=== PATIENT | female | born 1990 | race Caucasian/White ===

== ENCOUNTER 2020-10-10 05:13 | Emergency (ER) | payer OTHER, SELFPAY ==
[2020-10-10 05:14] VITALS: BP 147/113; PULSE 125; RESP 18; TEMP 37.2; O2SAT 94; BMI 29.1
--- NOTE | 2020-10-10 05:21 | CT_ITS ---
STUDY: CT ABDOMEN AND PELVIS WITHOUT CONTRAST REASON FOR EXAM: Female, 30 years old. Pain RADIATION DOSAGE (If Supplied By Facility): CTDIvol = ( 34.45 ) mGy, DLP = ( 1833.45 ) mGycm TECHNIQUE: Transaxial images were obtained from the dome of the diaphragm to the symphysis pubis without oral contrast, and without intravenous contrast. Sagittal and coronal images were reconstructed. Individualized dose optimization techniques were used for this CT. COMPARISON: None. FINDINGS: The visualized lung bases are unremarkable. The visualized portions of the heart are within normal limits. Normal liver. There are surgical clips in the gallbladder fossa consistent with a prior cholecystectomy. Normal spleen. Normal pancreas. Normal bilateral adrenal glands. Normal right kidney. Normal left kidney. Normal visualized stomach. Normal small intestine. There is abundant stool in the colon. The appendix is visualized and appears normal. Normal abdominal aorta. Normal inferior vena cava. Normal retroperitoneum. Normal urinary bladder. There is atrophy of the uterus. Normal abdominal wall. There are diffuse degenerative changes of the visualized lumbar spine. There is a left lateral disc protrusion L4-L5. There is a broad disc osteophyte protrusion L5-S1 with moderate to severe left neural foramina narrowing moderate central stenosis. CT/Abdomen/Pelvis without Cont IMPRESSION: Constipation no appendicitis Status post cholecystectomy Degenerative change of the lower lumbar spine with a left lateral disc protrusion L4-L5 and L5-S1. Electronically Signed: Ellie Cruz MD at 6:19 EDT Tel , Service support ,
[2020-10-10 05:31] LABS: Absolute Lymphocyte Count 4.37 X10^3/uL (0.83-4.51); Absolute Neutrophil Count 9.7 X10^3/uL (2.0-7.7); Basophil# 0.07 X10^3/uL; Basophil% 0.4 % (0-1); Eosinophil# 0.57 X10^3/uL; Eosinophils% 3.6 % (0-5); Hematocrit 45.9 % (37-47); Hemoglobin 14.9 g/dL (12.0-15.0); Lymphocyte # 4.37 X10^3/ul (0.83-4.51); Lymphocyte % 27.7 % (19-41); Mean Corp Hgb Conc 32.5 g/dL (32-36); Mean Corpuscular Hgb 28.2 pg (27.0-32.0); Mean Corpuscular Volume 86.9 fL (81-99); Mean Platelet Vol. 9.8 fl (6.2-12.0); Monocyte# 1.01 X10^3/uL; Monocyte% 6.4 % (0-10); NRBC Flagged by Analyzer 0 % (0-5); Neutrophil # 9.67 X10^3/uL (2.7-7.7); Neutrophil % 61.4 % (47-70); Platelet Count 468 K/mm3 (150-450); RBC Distribution Width CV 13.6 % (11.6-14.6); RBC Distribution Width SD 42.9 fl (35.1-43.9); Red Blood Count 5.28 M/mm3 (4.2-5.4); White Blood Count 15.8 K/mm3 (4.4-11.0)
--- NOTE | 2020-10-10 05:36 | EX.ED.DYSGE1 ---
HPI History of Present Illness Chief Complaint: Dizziness Informant: patient Narrative Narrative: Patient presents with dizziness and lightheadedness. She states that she started having symptoms last night but when she woke up this morning they were worse. She states that she feels lightheaded. She initially had no pain but when she got to the emergency department she now has right lower quadrant abdominal pain. No dysuria or hematuria. She denies any nausea vomiting or diarrhea. She denies a headache. The patient is hyperventilating and states that she has having blurry vision. She does not give much history. [facility] Medical History Asthma Hypertension Home Medications sulfamethoxazole-trimethoprim 1 tab PO BID #14 tablet 10/10/20 [Rx Last Taken Unknown] Allergy/AdvReac Type Severity Reaction Status Date / Time No Known Allergies Allergy Verified 10/10/20 05:21 Social History Smoking Status: Current some day smoker tobacco type: cigarettes ROS ROS ED Constitutional Constitutional ED: Denies chills or fever(s) Eyes Eyes: Denies blurry vision, change in vision or diplopia ENT ENT ED: Denies ear pain, rhinorrhea or sore throat Cardiovascular Cardiovascular: Reports other Details: Dizziness and lightheadedness Respiratory/Chest Respiratory/Chest: Denies cough, dyspnea or sputum Gastrointestinal Gastrointestinal: Reports abdominal pain Genitourinary Genitourinary ED: Denies dysuria, hematuria or urinary frequency Musculoskeletal Musculoskeletal: Denies back pain or neck pain Integumentary Denies change in pigmentation or rash Neurologic Neurologic: Denies headache(s), numbness or weakness Psychiatric Psychiatric: Denies anxiety or depression Endocrine Endocrinology: Denies polydipsia or polyuria EXAM Physical Exam Const Vital Signs: 10/10/20 05:14 10/10/20 05:19 Temperature 98.9 F Temperature Source Oral Pulse Rate 125 H Respiratory Rate 18 Respiratory Effort Normal Non-Labored Respiratory Pattern Normal Blood Pressure 147/113 H Blood Pressure Mean 124 Pulse Ox 94 Oxygen Delivery Method Room Air Positive well nourished and well developed Constitutional Narrative: Patient is hyperventilating General Appearance ED: well developed HEENT Reports moist mucous membranes normocephalic and atraumatic; Negative for tenderness Eyes PERRL and EOMs intact bilaterally Neck supple and no JVD Chest Wall Chest: Negative for tenderness Resp normal respiratory effort and clear to auscultation bilaterally Effort and Inspection: Negative for respiratory distress Cardio regular rhythm and no murmurs Rate: regular rate and tachycardic Rhythm: regular rhythm GI soft to palpation and non-distended Palpation: soft and tender RLQ Back/Spine no CVA tenderness and no thoracic nor lumbar tenderness Cervical Spine: Negative for cervical spine tenderness Extremity normal to inspection and full ROM General Extremety ED: Negative for tenderness Neuro oriented x3, CN's II-XII intact bilaterally and no sensory deficits noted Sensorium / Orientation: awake and alert Motor Exam: strength 5/5 throughout Psych mental status grossly normal Skin no rashes or lesions noted MDM MDM MDM Narrative Medical decision making narrative: The patient was given Toradol for pain control. Laboratory studies show white blood cell count of 15.8, alkaline phosphatase 121. Urinalysis does have 500 leukocyte esterase and 25-50 white blood cells with 4+ bacteria. CAT scan of the abdomen and pelvis does not reveal anything acute. She was still continues to have pain so I gave her morphine for pain. I will start her on Bactrim for UTI. I do not see any acute causes for her lightheadedness or her abdominal pain. I will hydrate her with IV fluids and discharge her on Bactrim. She will follow-up with her PCP. Lab Data Labs: Laboratory Results - last 24 hr 10/10/20 10/10/20 10/10/20 05:25 05:25 05:35 WBC 15.8 H RBC 5.28 Hgb 14.9 Hct 45.9 MCV 86.9 MCH 28.2 MCHC 32.5 RDW Std Deviation 42.9 RDW Coeff of Jelena 13.6 Plt Count 468 H MPV 9.8 Immature Gran % (Auto) 0.500 Neut % (Auto) 61.4 Lymph % (Auto) 27.7 [place] % (Auto) 6.4 Eos % (Auto) 3.6 Baso % (Auto) 0.4 Absolute Neuts (auto) 9.7 H Absolute Lymphs (auto) 4.37 Nucleated RBC % 0 Sodium 137 Potassium 4.3 Chloride 106 Carbon Dioxide 21.0 Anion Gap 10 BUN 16 Creatinine 0.95 Estim Creat Clear Calc 84.20 Est GFR (MDRD) Af Amer 89 Est GFR (MDRD) Non-Af 73 BUN/Creatinine Ratio 16.8 Glucose 101 Calcium 9.2 Total Bilirubin 0.30 AST 19 ALT 36 Alkaline Phosphatase 121 H Total Protein 8.3 H Albumin 3.8 Globulin 4.5 H Albumin/Globulin Ratio 0.8 L Lipase 79 Urine Color Yellow Urine Clarity Sl. Cloudy Urine pH 5.0 Ur Specific [place] 1.030 Urine Protein 30 H Urine Glucose (UA) Normal Urine Ketones 5 H Urine Occult Blood 250 H Urine Nitrite Negative Urine Bilirubin Negative Urine Urobilinogen 1 H Ur Leukocyte Esterase 500 H Urine RBC 5-10 SEEN Urine WBC 25-50 SEEN Ur Squamous Epith Cells 10-25 SEEN Urine Bacteria 4+ Urine Mucus 0 SEEN Urine Test Negative Radiography Diagnostic Testing: Radiology Impression Abdomen/Pelvis CT 10/10/20 05:21 IMPRESSION: Constipation no appendicitis Status post cholecystectomy Degenerative change of the lower lumbar spine with a left lateral disc protrusion L4-L5 and L5-S1. Electronically Signed: Ellie Cruz MD at 6:19 EDT Tel , Service support , Discharge Plan Triage Chief Complaint: Dizziness ED Provider: Wily Crockett Dx/Rx/DC Orders Clinical Impression: Light-headed, Abdominal pain Instructions: ED Abdominal Pain Unkn Cause Fem Prescriptions: New sulfamethoxazole-trimethoprim [sulfamethoxazole-trimethoprim] 1 TABLET tablet 1 tab PO BID Qty: 14 RF: 0 Primary Care Provider: Care Physician,No Primary Referrals: Care Physician,No Primary [Primary Care Provider] - Disposition Disposition: Home, self care
[2020-10-10 05:44] LABS: Mucous, Urine 0 SEEN /hpf (<or=2+)
[2020-10-10] MEDS: Ketorolac 15 MG/ML Vial IV (05:44)
[2020-10-10] MEDS: 0.9% Normal Saline 1,000 ML 1000 ML IV (05:44)
[2020-10-10] MEDS: Ondansetron 4 MG/2 ML Vial IV (05:44)
[2020-10-10 05:52] LABS: Color, Urine Yellow (Yellow); Glucose, Dipstick Normal (Normal); Ketone-Dipstick 5 mg/dl (Negative); Leukocyte Esterase-Dipstick 500 /ul (Negative); Nitrite-Dipstick Negative (Negative); Occult Blood-Urine 250 /ul (Negative); Protein-Dipstick 30 mg/dl (Negative); Urine Bilirubin Dipstick Negative (Negative); Urine Clarity Sl. Cloudy (Clear); Urine Urobilinogen 1 mg/dl (Normal)
[2020-10-10 05:54] LABS: Internal QC Validated? YES +Cl - CLEAR BKGD; Pregnancy, Urine Negative Negative
[2020-10-10 06:00] LABS: Bacteria 4+ /hpf (None Seen); Red Blood Cells-Urine 5-10 SEEN /hpf (0-5); Squamous Epithelial Cells - UA 10-25 SEEN /hpf (5-10); White Blood Cells 25-50 SEEN /hpf (0-5)
[2020-10-10 06:02] LABS: ALB/GLOB Ratio 0.8 RATIO (0.9-2.4); AST(SGOT) 19 U/L (15-37); Alanine Aminotransfer ALT/SGPT 36 U/L (13-56); Albumin, Serum 3.8 g/dL (3.2-5.0); Alkaline Phosphatase 121 U/L (45-117); Anion Gap 10 (5-15); BUN 16 mg/dL (7-18); BUN/Creat Ratio 16.8 RATIO (10-20); Calcium,Total 9.2 mg/dL (8.5-10.1); Chloride 106 mmol/L (98-107); Creatinine, Serum 0.95 mg/dL (0.55-1.02); EST Glomerular Filtration Rate 73 mL/min (>60); Est Glom Filt Rate - Afr Amer 89 mL/min (>60); Globulin 4.5 g/dL (2.2-4.2); Glucose 101 mg/dL (74-106); Lipase 79 U/L (73-393); Potassium 4.3 mmol/L (3.5-5.1); Protein, Total 8.3 g/dL (6.4-8.2); Sodium Level 137 mmol/L (136-145)
[2020-10-10] MEDS: Smz/Tmp Ds Tablet 1 TABLET PO (06:27)
[2020-10-10] MEDS: Morphine 4 MG/ML Syringe IV (06:34)
[2020-10-10 06:49] VITALS: BP 147/88; PULSE 98; RESP 18; O2SAT 97
== END 2020-10-10 06:49 | disposition home or self-care (01) ==
PROVIDERS: Emergency Provider Emergency Medicine
DX: R42 Dizziness and giddiness (principal); R10.31 Right lower quadrant pain; F17.210 Nicotine dependence, cigarettes, uncomplicated
CPT/HCPCS: 74176; 80053; 81001; 81025; 83690; 85025; 96374; 96375; 99285; J7030; A4216; J2405

== ENCOUNTER → 2020-12-23 | Outpatient (CLI) | payer OTHER, SELFPAY ==
[2020-12-23 12:58] LABS: Hematocrit 42.9 % (37-47); Hemoglobin 13.8 g/dL (12.0-15.0); Mean Corp Hgb Conc 32.2 g/dL (32-36); Mean Corpuscular Hgb 27.9 pg (27.0-32.0); Mean Corpuscular Volume 86.7 fL (81-99); Mean Platelet Vol. 10.4 fl (6.2-12.0); Platelet Count 408 K/mm3 (150-450); RBC Distribution Width CV 13.8 % (11.6-14.6); Red Blood Count 4.95 M/mm3 (4.2-5.4); White Blood Count 10.8 K/mm3 (4.4-11.0)
[2020-12-23 13:24] LABS: Hemoglobin A1c 5.8 % (3.8-5.6)
[2020-12-23 13:34] LABS: Vitamin B12 309 pg/mL (211-911); Vitamin D,25 Hydroxy 14.1 ng/mL
[2020-12-23 13:45] LABS: ALB/GLOB Ratio 0.8 RATIO (0.9-2.4); AST(SGOT) 22 U/L (15-37); Alanine Aminotransfer ALT/SGPT 32 U/L (13-56); Albumin, Serum 3.4 g/dL (3.2-5.0); Alkaline Phosphatase 98 U/L (45-117); Anion Gap 7 (5-15); BUN 8 mg/dL (7-18); BUN/Creat Ratio 10.8 RATIO (10-20); Calcium,Total 8.6 mg/dL (8.5-10.1); Chloride 107 mmol/L (98-107); Creatinine, Serum 0.74 mg/dL (0.55-1.02); EST Glomerular Filtration Rate 97 mL/min (>60); Est Glom Filt Rate - Afr Amer 118 mL/min (>60); Ferritin 29 ng/mL (8-252); Globulin 4.2 g/dL (2.2-4.2); Glucose 63 mg/dL (74-106); Iron 75 ug/dL (50-170); Potassium 4.2 mmol/L (3.5-5.1); Protein, Total 7.6 g/dL (6.4-8.2); Sodium Level 138 mmol/L (136-145)
== END | disposition home or self-care (01) ==
LOC: LABSPEC 12:09
PROVIDERS: Referring Provider Nurse Practitioner Family; Visit Provider Nurse Practitioner Family
DX: E55.9 Vitamin D deficiency, unspecified (principal); I10 Essential (primary) hypertension; N92.0 Excessive and frequent menstruation with regular cycle; E66.01 Morbid (severe) obesity due to excess calories
CPT/HCPCS: 80053; 82306; 82607; 82728; 82746; 83036; 83540; 85027

== ENCOUNTER 2021-04-04 08:53 | Emergency (ER) | payer OTHER, SELFPAY ==
[2021-04-04 08:54] VITALS: BP 144/117; PULSE 134; RESP 28; TEMP 35.2; O2SAT 94; BMI 65.2
[2021-04-04 09:22] VITALS: BP 148/91; PULSE 126; RESP 26; TEMP 36.8; O2SAT 96
--- NOTE | 2021-04-04 09:54 | RAD_ITS ---
STUDY: X-RAY CHEST REASON FOR EXAM: Female, 30 years old. Cough TECHNIQUE: Single AP portable view of the chest. COMPARISON: None. FINDINGS: EKG electrodes are seen. The lungs are clear and expanded. There is no demonstrated pleural abnormality. Normal size heart. Normal mediastinum and fitz. Normal visualized pulmonary arteries. Normal visualized aortic arch and descending thoracic aorta. Normal visualized thoracic spine. Normal visualized ribs, clavicles, and shoulders. There is no demonstrated abnormality of the visualized soft tissue structures of the upper abdomen. RAD/Chest 1 View (Portable) IMPRESSION: Normal x-ray examination of the chest. Electronically Signed: Lamin Martinez MD at 11:24 EST , Service support ,
[2021-04-04 11:03] VITALS: BP 134/114; PULSE 115; RESP 24; TEMP 36.9; O2SAT 97
[2021-04-04 11:49] LABS: Absolute Lymphocyte Count 1.27 X10^3/uL (0.83-4.51); Absolute Neutrophil Count 3.4 X10^3/uL (2.0-7.7); Basophil# 0.01 X10^3/uL; Basophil% 0.2 % (0-1); Eosinophil# 0.07 X10^3/uL; Eosinophils% 1.3 % (0-5); Hemoglobin 14.5 g/dL (12.0-15.0); Lymphocyte # 1.27 X10^3/ul (0.83-4.51); Lymphocyte % 23.8 % (19-41); Mean Corp Hgb Conc 32.2 g/dL (32-36); Mean Corpuscular Volume 86.9 fL (81-99); Mean Platelet Vol. 9.8 fl (6.2-12.0); Monocyte# 0.59 X10^3/uL; Monocyte% 11.1 % (0-10); NRBC Flagged by Analyzer 0 % (0-5); Neutrophil # 3.38 X10^3/uL (2.7-7.7); Neutrophil % 63.4 % (47-70); Platelet Count 268 K/mm3 (150-450); RBC Distribution Width CV 14.2 % (11.6-14.6); RBC Distribution Width SD 45.6 fl (35.1-43.9); Red Blood Count 5.18 M/mm3 (4.2-5.4); White Blood Count 5.3 K/mm3 (4.4-11.0)
--- NOTE | 2021-04-04 12:16 | ED.RN ---
dr. horan updated about pt. being a hard stick. 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 dr. horan gives verbal orders to cancel
[2021-04-04 13:20] VITALS: PULSE 128; RESP 18; O2SAT 95
[2021-04-04 13:23] LABS: Internal QC Validated? YES +Cl - CLEAR BKGD; Pregnancy, Serum, hCG Quali. NEGATIVE Negative
[2021-04-04 13:27] LABS: ALB/GLOB Ratio 0.8 RATIO (0.9-2.4); AST(SGOT) 55 U/L (15-37); Alanine Aminotransfer ALT/SGPT 69 U/L (13-56); Albumin, Serum 3.6 g/dL (3.2-5.0); Alkaline Phosphatase 86 U/L (45-117); Anion Gap 8 (5-15); BUN 13 mg/dL (7-18); BUN/Creat Ratio 13.2 RATIO (10-20); Calcium,Total 9.3 mg/dL (8.5-10.1); Chloride 101 mmol/L (98-107); Creatinine, Serum 0.99 mg/dL (0.55-1.02); EST Glomerular Filtration Rate 70 mL/min (>60); Est Glom Filt Rate - Afr Amer 85 mL/min (>60); Globulin 4.4 g/dL (2.2-4.2); Glucose 111 mg/dL (74-106); Potassium 3.9 mmol/L (3.5-5.1); Sodium Level 134 mmol/L (136-145)
[2021-04-04 13:42] LABS: Lactic Acid 1.2 mmol/L (0.4-1.9)
[2021-04-04 13:43] LABS: LDH 259 U/L (84-246)
--- NOTE | 2021-04-04 14:04 | EDS_ITS ---
HPI History of Present Illness Chief Complaint: Syncope Informant: patient Onset/Context/Timing Onset: Weeks (1) Context: Gradual Onset Timing: Continuous Quality: Fatigued, dehydrated Location: Generalized Worsened by: Nothing Relieved by: Nothing Narrative Narrative: Patient presents with nausea, vomiting, and diarrhea that has been getting worse over the past week. Patient states she feels fatigued and dehydrated. Patient states she also had 2 syncopal episodes during this last week. Patient admits to subjective fevers and sweats. Patient also admits to some rhinorrhea. Patient also admits to a mild cough and some shortness of breath. Patient admits to general myalgias and aching feeling. [facility] Medical History Asthma Hypertension Home Medications albuterol 1 mcg INHALATION PRN PRN 04/04/21 [History Last Taken Unknown] atenolol-chlorthalidone 1 tab PO DAILY 04/04/21 [History Last Taken Unknown] cholecalciferol (vitamin D3) [Vitamin D3] 50,000 unit PO QWEEK 04/04/21 [History Last Taken Unknown] ferrous sulfate 325 mg PO DAILY 04/04/21 [History Last Taken Unknown] Allergy/AdvReac Type Severity Reaction Status Date / Time No Known Allergies Allergy Verified 04/04/21 08:54 Surgical History (Updated 04/04/21 @ 16:[address] Vladimir Mendiola DO) Hx of adenoidectomy Hx of cholecystectomy Social History Smoking Status: Current some day smoker tobacco type: cigarettes ROS ROS ED Constitutional Constitutional ED: Reports subjective and sweats; Denies fever(s) Eyes Eyes: Denies blurry vision or change in vision ENT ENT ED: Reports rhinorrhea; Denies sore throat Cardiovascular Cardiovascular: Denies chest pain or palpitations Respiratory/Chest Respiratory/Chest: Reports cough and dyspnea Gastrointestinal Gastrointestinal: Reports diarrhea, nausea and vomiting Genitourinary Genitourinary ED: Denies dysuria or hematuria Musculoskeletal Musculoskeletal: Reports myalgias Integumentary Denies abscess or rash Neurologic Neurologic: Denies headache(s) or weakness Allergic/Immunologic Allergic/Immunologic ED: Denies mouth swelling or urticaria EXAM Physical Exam Const Vital Signs: 04/04/21 08:54 04/04/21 09:20 04/04/21 09:22 Temperature 95.4 F L 98.2 F Temperature Source Temporal Oral Pulse Rate 134 H 126 H Respiratory Rate 28 H 26 H Respiratory Effort Short of Breath Respiratory Pattern Tachypnea Blood Pressure 144/117 H 148/91 H Blood Pressure Mean 126 110 Pulse Ox 94 96 Oxygen Delivery Method Room Air Room Air 04/04/21 11:03 04/04/21 13:20 04/04/21 14:08 Temperature 98.5 F Temperature Source Temporal Pulse Rate 115 H 128 H Respiratory Rate 24 H 18 Respiratory Effort Respiratory Pattern Blood Pressure 134/114 H 130/94 H Blood Pressure Mean 120 Pulse Ox 97 95 Oxygen Delivery Method Room Air Room Air Positive well nourished, well developed and obese General Appearance ED: well developed Nutritional Appearance: obese HEENT Reports moist mucous membranes Neck supple and no JVD Resp normal respiratory effort and clear to auscultation bilaterally Auscultation: diminished lung sounds diffuse Cardio regular rate, regular rhythm and no murmurs GI normal to inspection, nondistended, normoactive bowel sounds and non-tender Palpation: soft Extremity normal to inspection General Extremety ED: Negative for edema or tenderness General Extremity: Negative for edema Neuro oriented x3, CN's II-XII intact bilaterally and no sensory deficits noted Sensorium / Orientation: alert Motor Exam: strength 5/5 throughout Psych mental status grossly normal Skin no rashes or lesions noted MDM MDM MDM Narrative Medical decision making narrative: Patient was given IV fluids. CBC was within normal limits. Comprehensive metabolic profile was obtained. There is a delay in obtaining the labs. Comprehensive metabolic profile was within normal limits. Serum hCG was negative. Lactate was normal. COVID-19 rapid antigen was obtained and was positive. Portable 1 view chest x-ray was obtained. On my interpretation, lung dickinson are clear. There is normal cardiac silhouette. Bony thorax is normal. There is no acute process noted. Radiologist also interpreted the x-ray and agrees. Patient was advised of her findings. Patient was instructed to follow-up with her primary care physician in 5 to 7 days. Patient was instructed to quarantine for the next week. Patient was instructed to return if worse in any way. Patient understood and was agreeable with the plan. All questions were answered. Lab Data Attestation: I reviewed the patient's lab results. Labs: Laboratory Results - last 24 hr 04/04/21 04/04/21 04/04/21 11:35 11:35 11:35 WBC 5.3 RBC 5.18 Hgb 14.5 Hct 45.0 MCV 86.9 MCH 28.0 MCHC 32.2 RDW Std Deviation 45.6 H RDW Coeff of Jelena 14.2 Plt Count 268 MPV 9.8 Immature Gran % (Auto) 0.200 Neut % (Auto) 63.4 Lymph % (Auto) 23.8 [place] % (Auto) 11.1 H Eos % (Auto) 1.3 Baso % (Auto) 0.2 Absolute Neuts (auto) 3.4 Absolute Lymphs (auto) 1.27 Nucleated RBC % 0 Sodium Cancelled Potassium Cancelled Chloride Cancelled Carbon Dioxide Cancelled Anion Gap Cancelled BUN Cancelled Creatinine Cancelled Estim Creat Clear Calc Cancelled Est GFR (MDRD) Af Amer Cancelled Est GFR (MDRD) Non-Af Cancelled BUN/Creatinine Ratio Cancelled Glucose Cancelled Lactic Acid Calcium Cancelled Total Bilirubin Cancelled AST Cancelled ALT Cancelled Alkaline Phosphatase Cancelled Lactate Dehydrogenase Total Protein Cancelled Albumin Cancelled Globulin Cancelled Albumin/Globulin Ratio Cancelled Serum , Qual Cancelled 04/04/21 04/04/21 04/04/21 12:53 12:53 12:53 WBC RBC Hgb Hct MCV MCH MCHC RDW Std Deviation RDW Coeff of Jelena Plt Count MPV Immature Gran % (Auto) Neut % (Auto) Lymph % (Auto) [place] % (Auto) Eos % (Auto) Baso % (Auto) Absolute Neuts (auto) Absolute Lymphs (auto) Nucleated RBC % Sodium 134 L Potassium 3.9 Chloride 101 Carbon Dioxide 25.0 Anion Gap 8 BUN 13 Creatinine 0.99 Estim Creat Clear Calc 80.80 Est GFR (MDRD) Af Amer 85 Est GFR (MDRD) Non-Af 70 BUN/Creatinine Ratio 13.2 Glucose 111 H Lactic Acid Calcium 9.3 Total Bilirubin 0.40 AST 55 H ALT 69 H Alkaline Phosphatase 86 Lactate Dehydrogenase 259 H Total Protein 8.0 Albumin 3.6 Globulin 4.4 H Albumin/Globulin Ratio 0.8 L Serum , Qual NEGATIVE 04/04/21 12:53 WBC RBC Hgb Hct MCV MCH MCHC RDW Std Deviation RDW Coeff of Jelena Plt Count MPV Immature Gran % (Auto) Neut % (Auto) Lymph % (Auto) [place] % (Auto) Eos % (Auto) Baso % (Auto) Absolute Neuts (auto) Absolute Lymphs (auto) Nucleated RBC % Sodium Potassium Chloride Carbon Dioxide Anion Gap BUN Creatinine Estim Creat Clear Calc Est GFR (MDRD) Af Amer Est GFR (MDRD) Non-Af BUN/Creatinine Ratio Glucose Lactic Acid 1.2 Calcium Total Bilirubin AST ALT Alkaline Phosphatase Lactate Dehydrogenase Total Protein Albumin Globulin Albumin/Globulin Ratio Serum , Qual Radiography Chest X-Ray - ED: 1 View, Read by ED Physician, Read by Radiologist and Normal Diagnostic Testing: Clinical Impression(s) from Imaging Studies Chest X-Ray 04/04/21 09:54 IMPRESSION: Normal x-ray examination of the chest. Electronically Signed: Lamin Martinez MD at 11:24 EST , Service support , Discharge Plan Triage Chief Complaint: Syncope ED Provider: Vladimir Mendiola Dx/Rx/DC Orders Clinical Impression: COVID-19, Syncope and collapse Instructions: Coronavirus Disease 2019 (COVID-19): Overview, Coronavirus Disease 2019 (COVID-19): Caring for Yourself or Others, ED Fainting, Uncertain Cause Prescriptions: No Action atenolol-chlorthalidone 100-25 mg Tablet 1 tab PO DAILY RF: 0 ferrous sulfate 325 mg (65 mg iron) Tablet 325 mg PO DAILY RF: 0 albuterol 90 mcg/actuation Aerosol 1 mcg INHALATION PRN PRN (Reason: Shortness Of Breath Or Wheezing) RF: 0 cholecalciferol (vitamin D3) [Vitamin D3] 125 mcg (5,000 unit) Tablet 50,000 unit PO QWEEK RF: 0 Primary Care Provider: Care Physician,No Primary Referrals: Care Physician,No Primary [Primary Care Provider] - 5-7 Days Disposition Disposition: Home, Self Care Discharge Date/Time: 04/04/21 14:14
[2021-04-04 14:08] VITALS: BP 130/94
== END 2021-04-04 14:14 | disposition home or self-care (01) ==
PROVIDERS: Emergency Provider Emergency Medicine
DX: U07.1 COVID-19 (principal); R55 Syncope and collapse; E66.9 Obesity, unspecified; Z68.44 Body mass index [BMI] 60.0-69.9, adult; I10 Essential (primary) hypertension; J45.909 Unspecified asthma, uncomplicated; Z79.899 Other long term (current) drug therapy; F17.210 Nicotine dependence, cigarettes, uncomplicated
CPT/HCPCS: 36415; 71045; 80053; 83605; 83615; 84703; 85025; 87426; 96360; 96361; 99284; J7030; A4216

== ENCOUNTER 2022-10-03 08:52 | Emergency (ER) | payer OTHER, MEDICAID, SELFPAY ==
[2022-10-03 08:54] VITALS: BP 179/100; PULSE 126; RESP 24; TEMP 36.8; O2SAT 100; BMI 63.1
[2022-10-03] MEDS: Ondansetron 4 MG/2 ML Vial IV (09:41)
[2022-10-03] MEDS: Ketorolac 15 MG/ML Vial IV (09:41)
[2022-10-03] MEDS: morphine 10 MG/ML Syringe IV (09:42)
--- NOTE | 2022-10-03 11:11 | EDS_ITS ---
HPI History of Present Illness Chief Complaint: Back Detail of Chief Complaint: Right low back pain Informant: patient Onset/Context/Timing Onset: Days Context: Sudden Onset Injury: - (Nothing specific) Timing: Continuous and Waxes and wanes Quality: Dull and Aching Location: Lumbar Current Severity: Mild Maximum Severity: Severe Worsened by: improves with Movement, Ambulation, Bending and Lifting Relieved by: Nothing Associated Symptoms Associated Symptoms: - (Patient does not not endorse foot drop. Unable to determine if she has buckling of her knees going up or down steps since there are no steps where she lives or works. She had no recent dental procedure.); Negative for Numbness, Tingling, Radiation to Right Leg, Radiation to Left Leg, Fever, Abdominal Pain, Dysuria, Unable to Ambulate, Unable to Transfer, Urinary Retention, Urinary Incontinence, Constipation or Fecal Incontinence Narrative Narrative: Patient is a 32-year-old woman whose BMI is 63.3 complaining of right-sided low back pain and right buttock pain. She denies bowel bladder dysfunction. No saddle paresthesia anesthesia. She denies any other symptoms. She denies fever, chills night sweats. She denies history of herniated disc. The is no history of trauma. Prior similar symptoms: No Recent Illness/Hospitalization: No PFSH PFSH Medical History Asthma Diabetes Hypertension Home Medications hydrocodone-acetaminophen 5-325mg 5mg-325mg 1 tab PO Q6H PRN PRN Pain 3 days #10 TABLETS 10/03/22 [Rx Last Taken Unknown] naproxen 500 mg tablet 500 mg PO BID #14 tabs 10/03/22 [Rx Last Taken Unknown] Allergy/AdvReac Type Severity Reaction Status Date / Time No Known Allergies Allergy Verified 10/03/22 08:53 Surgical History Hx of adenoidectomy Hx of cholecystectomy Social History (Updated 10/03/22 @ 11:[address] Prme Kimbrough MD) household members: significant other Smoking Status: Current some day smoker tobacco type: cigarettes ROS ROS ED Constitutional Constitutional ED: Denies chills, fever(s), subjective or sweats Eyes Eyes: Denies blurry vision, change in vision or diplopia ENT ENT ED: Denies ear pain, rhinorrhea or sore throat Cardiovascular Cardiovascular: Denies chest pain, orthopnea or palpitations Respiratory/Chest Respiratory/Chest: Reports dyspnea on exertion; Denies dyspnea or orthopnea Gastrointestinal Gastrointestinal: Denies abdominal pain, constipation, diarrhea, nausea or vomiting Genitourinary Genitourinary ED: Denies dysuria, hematuria or urinary frequency Musculoskeletal Musculoskeletal: Reports back pain; Denies arthralgias, myalgias or neck pain Integumentary Denies abscess, Abrasions or rash Neurologic Neurologic: Denies headache(s), paresthesias or weakness Endocrine Endocrinology: Denies cold intolerance or heat intolerance Hematologic/Lymphatic Hematologic/Lymphatic: Denies easy bleeding or easy bruising EXAM Physical Exam Const Vital Signs: 10/03/22 08:54 Temperature 98.2 F Temperature Source Temporal Pulse Rate 126 H Respiratory Rate 24 H Blood Pressure 179/100 H Blood Pressure Mean 126 Pulse Ox 100 Oxygen Delivery Method Room Air Positive well nourished, well developed and obese Constitutional Narrative: Patient noted to have a limp walking from triage to her room. There is no foot drop. Patient appears uncomfortable. General Appearance ED: well developed; Negative for NAD or pallor Nutritional Appearance: obese HEENT Reports moist mucous membranes HEENT Narrative: Head is atraumatic normocephalic. Ears normal. Nares patent. Posterior pharynx is normal. Eyes PERRL and EOMs intact bilaterally General Eye ED: Negative for pale conjunctiva or scleral icterus Neck no lymphadenopathy, supple and no JVD Resp normal respiratory effort and clear to auscultation bilaterally Cardio regular rhythm, S1 normal heart sound, S2 normal heart sound and no murmurs Rate: tachycardic GI normal to inspection, nondistended, normoactive bowel sounds, soft to palpation, non-tender, non-distended and no masses Back/Spine normal to inspection; Negative for no thoracic nor lumbar tenderness Back/Spine Narrative: Patella and ankle reflex are 1+. EHLs intact. There is no clonus Babinski sign. Patient is able to perform a 1 legged squat right and left. Normal perianal sensation. Normal sensation over L3, L4, L5 and S1 dermatome. DP pulses palpable and 2+. General Back: Negative for CVA tenderness Cervical Spine: Negative for cervical spine tenderness Thoracic Spine / Upper Back: Negative for paraspinal muscle tenderness Lumbar Spine / Lower Back: ROM limited and straight leg raise negative bilaterally Extremity normal to inspection and no clubbing, cyanosis or edema Neuro oriented x3 and no sensory deficits noted Sensorium / Orientation: alert Motor Exam: strength 5/5 throughout Deep Tendon Reflexes: Rt Patellar (L4): 1+, Lt Patellar (L4): 1+, Rt Ankle (S1): 1+ and Lt Ankle (S1): 1+ Deep Tendon Reflexes Back: Rt Patellar (L4): 1+, Lt Patellar (L4): 1+, Rt Ankle (S1): 1+ and Lt Ankle (S1): 1+ Plantar Reflex: Downgoing: bilateral Psych mental status grossly normal Skin no rashes or lesions noted and no wounds General Skin Exam: Negative for jaundice or pallor MDM MDM MDM Narrative Medical decision making narrative: Patient was medicated with IV Toradol, morphine and Zofran. She was reassessed at 05/03/2006. Patient is sitting up does not appear in discomfort like she did when she presented. Since she does not have radicular pain and has a normal neurologic exam she was discharged home with appropriate home-going instruction. Since there is no history of trauma and symptoms have not been present for more than 1 week imaging is not indicated per the literature. Plan is to discharge with appropriate oral analgesia and follow-up with her doctor. She was instructed to return if she loses bowel control, cannot urinate or develops a foot drop or buckling of her knees going up or down steps. Discharge Plan Triage Chief Complaint: Back ED Provider: Prem Kimbrough Dx/Rx/DC Orders Clinical Impression: Acute low back pain Instructions: ED Back Pain (Acute or Chronic) Prescriptions: New hydrocodone-acetaminophen [hydrocodone-acetaminophen] 5-325 mg tablet 1 tab PO Q6H PRN PRN (Reason: Pain) 3 Days Qty: 10 0RF naproxen 500 mg tablet 500 mg PO BID Qty: 14 0RF Primary Care Provider: Care Physician,No Primary Referrals: Antonietta Palumbo MD [Med Staff - Construction Economist] - 3-5 Days if not improving Care Physician,No Primary [Primary Care Provider] - Activity Restrictions/Additional Instructions: 1. Apply ice 6-10 times a day 2. Avoid activity that causes you pain 3. If you are unable to urinate, loss of bowel control or are dragging your leg return to the emergency department Disposition Disposition: Home, Self Care
== END 2022-10-03 11:28 | disposition home or self-care (01) ==
PROVIDERS: Emergency Provider Emergency Medicine; Visit Provider Emergency Medicine
DX: M54.50 Low back pain, unspecified (principal); E11.9 Type 2 diabetes mellitus without complications; F17.210 Nicotine dependence, cigarettes, uncomplicated; I10 Essential (primary) hypertension; Z90.49 Acquired absence of other specified parts of digestive tract
CPT/HCPCS: 96374; 96375; 99283; A4216; J2405

== ENCOUNTER → 2023-01-12 | Outpatient (CLI) | payer OTHER, MEDICAID, SELFPAY ==
[2023-01-12 12:51] LABS: Absolute Lymphocyte Count 3.26 X10^3/uL (0.83-4.51); Absolute Neutrophil Count 8.9 X10^3/uL (2.0-7.7); Basophil# 0.04 X10^3/uL; Basophil% 0.3 % (0-1); Hematocrit 47.8 % (37-47); Hemoglobin 15.1 g/dL (12.0-15.0); Lymphocyte # 3.26 X10^3/ul (0.83-4.51); Lymphocyte % 24.3 % (19-41); Mean Corp Hgb Conc 31.6 g/dL (32-36); Mean Corpuscular Hgb 27.8 pg (27.0-32.0); Mean Corpuscular Volume 87.9 fL (81-99); Mean Platelet Vol. 10.9 fl (6.2-12.0); NRBC Flagged by Analyzer 0 % (0-5); Neutrophil # 8.87 X10^3/uL (2.7-7.7); Neutrophil % 66.2 % (47-70); Platelet Count 462 K/mm3 (150-450); RBC Distribution Width CV 14.1 % (11.6-14.6); RBC Distribution Width SD 45.3 fl (35.1-43.9); Red Blood Count 5.44 M/mm3 (4.2-5.4); White Blood Count 13.4 K/mm3 (4.4-11.0)
[2023-01-12 13:05] LABS: AST(SGOT) 29 U/L (15-37); Alanine Aminotransfer ALT/SGPT 64 U/L (13-56); Albumin, Serum 3.8 g/dL (3.2-5.0); Alkaline Phosphatase 109 U/L (45-117); Anion Gap 9 (5-15); BUN 7 mg/dL (7-18); BUN/Creat Ratio 8.3 RATIO (10-20); Calcium,Total 9.2 mg/dL (8.5-10.1); Chloride 107 mmol/L (98-107); Cholesterol 176 mg/dL (200); Creatinine, Serum 0.85 mg/dL (0.55-1.02); EST Glomerular Filtration Rate 83 mL/min (>60); Est Glom Filt Rate - Afr Amer 100 mL/min (>60); Glucose 94 mg/dL (74-106); High Density Lipoprotein 42 mg/dL; Potassium 5.2 mmol/L (3.5-5.1); Protein, Total 7.8 g/dL (6.4-8.2); Sodium Level 138 mmol/L (136-145); Triglycerides 91 mg/dL; Very Low Density Lipoprotein 18 mg/dL (5-40)
[2023-01-12 13:07] LABS: Vitamin D,25 Hydroxy 17.2 ng/mL
[2023-01-12 13:21] LABS: Hemoglobin A1c 5.8 % (3.8-5.6)
== END | disposition home or self-care (01) ==
LOC: LABSPEC 12:38
PROVIDERS: Referring Provider Nurse Practitioner Family; Visit Provider Nurse Practitioner Family
DX: E11.9 Type 2 diabetes mellitus without complications (principal); I10 Essential (primary) hypertension; M54.31 Sciatica, right side; E66.9 Obesity, unspecified
CPT/HCPCS: 80053; 80061; 82306; 83036; 85025

== ENCOUNTER → 2023-10-21 | Outpatient (CLI) | payer OTHER, SELFPAY ==
[2023-10-21 12:40] LABS: Absolute Lymphocyte Count 2.69 X10^3/uL (0.83-4.51); Absolute Neutrophil Count 7.4 X10^3/uL (2.0-7.7); Basophil# 0.04 X10^3/uL; Basophil% 0.4 % (0-1); Eosinophil# 0.52 X10^3/uL; Eosinophils% 4.6 % (0-5); Hematocrit 43.1 % (37-47); Hemoglobin 13.8 g/dL (12.0-15.0); Lymphocyte # 2.69 X10^3/ul (0.83-4.51); Lymphocyte % 23.7 % (19-41); Mean Corpuscular Hgb 28.4 pg (27.0-32.0); Mean Corpuscular Volume 88.7 fL (81-99); Mean Platelet Vol. 10.6 fl (6.2-12.0); Monocyte# 0.63 X10^3/uL; Monocyte% 5.6 % (0-10); NRBC Flagged by Analyzer 0 % (0-5); Neutrophil # 7.43 X10^3/uL (2.7-7.7); Neutrophil % 65.3 % (47-70); Platelet Count 416 K/mm3 (150-450); RBC Distribution Width CV 14.3 % (11.6-14.6); RBC Distribution Width SD 46.1 fl (35.1-43.9); Red Blood Count 4.86 M/mm3 (4.2-5.4); White Blood Count 11.4 K/mm3 (4.4-11.0)
[2023-10-21 12:46] LABS: Vitamin B12 182 pg/mL (211-911); Vitamin D,25 Hydroxy 11.6 ng/mL
[2023-10-21 13:39] LABS: ALB/GLOB Ratio 0.8 RATIO (0.9-2.4); AST(SGOT) 27 U/L (15-37); Alanine Aminotransfer ALT/SGPT 39 U/L (13-56); Albumin, Serum 3.6 g/dL (3.2-5.0); Alkaline Phosphatase 100 U/L (45-117); Anion Gap 8 (5-15); BUN 9 mg/dL (7-18); BUN/Creat Ratio 10.4 RATIO (10-20); Calcium,Total 8.9 mg/dL (8.5-10.1); Chloride 107 mmol/L (98-107); Cholesterol 182 mg/dL (200); Creatinine, Serum 0.86 mg/dL (0.55-1.02); EST Glomerular Filtration Rate 80 mL/min (>60); Est Glom Filt Rate - Afr Amer 97 mL/min (>60); Globulin 4.3 g/dL (2.2-4.2); Glucose 80 mg/dL (74-106); High Density Lipoprotein 38 mg/dL; Potassium 4.3 mmol/L (3.5-5.1); Protein, Total 7.9 g/dL (6.4-8.2); Sodium Level 135 mmol/L (136-145); Thyroid Stim Hormone (TSH) 1.88 uIU/mL (0.358-3.74); Triglycerides 99 mg/dL; Very Low Density Lipoprotein 20 mg/dL (5-40)
== END | disposition home or self-care (01) ==
LOC: VSLAB 09:44
PROVIDERS: PCP Nurse Practitioner Family; Visit Provider Nurse Practitioner Family
DX: E11.9 Type 2 diabetes mellitus without complications (principal); Z13.220 Encounter for screening for lipoid disorders; E55.9 Vitamin D deficiency, unspecified; E53.8 Deficiency of other specified B group vitamins
CPT/HCPCS: 36415; 80053; 80061; 82043; 82306; 82607; 84443; 85025

== ENCOUNTER 2023-12-15 05:56 | Emergency (ER) | payer OTHER, SELFPAY ==
[2023-12-15 05:56] VITALS: BP 156/94; PULSE 126; RESP 16; TEMP 35.8; O2SAT 99; BMI 51.7
--- NOTE | 2023-12-15 06:06 | US_ITS ---
STUDY: FIRST TRIMESTER OBSTETRICAL ULTRASOUND REASON FOR EXAM: Female, 33 years old heavy bleeding LMP: 11/10/2023 TECHNIQUE: Transvaginal TECHNICAL QUALITY: Adequate. PRIOR ULTRASOUND: None. FINDINGS: There is no demonstrated intrauterine gestational sac. There is no demonstrated yolk sac. The placenta is non-visualized. The uterus measures 8.4 x 5.3 x 4.3 cm. There is no demonstrated uterine fibroid. The cervix is closed. Endometrium measures 8 mm. The right ovary measures 3.3 x 3.2 x 3.0 cm. There is a complex 3.2 x 2.9 x 2.6 cm cyst. There is no hyperemia, or ring of fire to suspect this represents an ectopic . There is no free fluid. However, there are multiple thin septations and this could represent an endometrioma. ACR White Paper guidelines (Parada, et. al. Radiology 2010; 256(3):943-954) suggest follow-up pelvic ultrasound in 6-12 weeks. Then, if unchanged and not surgically removed, yearly ultrasound follow-up. The left ovary measures 2.1 x 3.3 x 2.2 cm. There is no left ovarian cyst. There is no visualized left adnexal mass or complex lesion. There is no fluid in the cul de sac. US/Transvaginal w/Preg US IMPRESSION: No sonographic evidence of intra or extrauterine gestation Complex 3.2 cm right adnexal cyst, follow-up ultrasound in 6-12 weeks recommended. COURSE DEVELOPER consultation recommended Electronically Signed: Tylor Fink MD at 8:43 EDT ,
[2023-12-15 06:34] LABS: Bacteria 0 SEEN /hpf (None Seen); Mucous, Urine 0 SEEN /hpf (<or=2+)
[2023-12-15 06:37] LABS: Color, Urine Red (Yellow); Glucose, Dipstick Normal (Normal); Ketone-Dipstick 5 mg/dl (Negative); Leukocyte Esterase-Dipstick 100 /ul (Negative); Nitrite-Dipstick Negative (Negative); Occult Blood-Urine 250 /ul (Negative); Protein-Dipstick 100 mg/dl (Negative); Specific Gravity, Urine 1.025 (1.002-1.030); Urine Bilirubin Dipstick 1 mg/dL (Negative); Urine Clarity Cloudy (Clear); Urine Urobilinogen 1 mg/dl (Normal)
[2023-12-15 06:54] LABS: Absolute Lymphocyte Count 2.32 X10^3/uL (0.83-4.51); Absolute Neutrophil Count 6.2 X10^3/uL (2.0-7.7); Basophil# 0.06 X10^3/uL; Basophil% 0.6 % (0-1); Eosinophil# 0.42 X10^3/uL; Eosinophils% 4.4 % (0-5); Hemoglobin 14.5 g/dL (12.0-15.0); Lymphocyte # 2.32 X10^3/ul (0.83-4.51); Lymphocyte % 24.1 % (19-41); Mean Corpuscular Hgb 28.8 pg (27.0-32.0); Mean Corpuscular Volume 87.3 fL (81-99); Mean Platelet Vol. 10.6 fl (6.2-12.0); Monocyte# 0.57 X10^3/uL; Monocyte% 5.9 % (0-10); NRBC Flagged by Analyzer 0 % (0-5); Neutrophil # 6.24 X10^3/uL (2.7-7.7); Neutrophil % 64.7 % (47-70); Platelet Count 333 K/mm3 (150-450); RBC Distribution Width CV 14.1 % (11.6-14.6); Red Blood Count 5.04 M/mm3 (4.2-5.4); White Blood Count 9.6 K/mm3 (4.4-11.0)
[2023-12-15 07:01] LABS: Anion Gap 6 (5-15); BUN 8 mg/dL (7-18); BUN/Creat Ratio 10.4 RATIO (10-20); Calcium,Total 8.9 mg/dL (8.5-10.1); Chloride 108 mmol/L (98-107); Creatinine, Serum 0.77 mg/dL (0.55-1.02); EST Glomerular Filtration Rate 92 mL/min (>60); Est Glom Filt Rate - Afr Amer 111 mL/min (>60); Estimated Creatinine Clearance 164.28 ml/min; Glucose 102 mg/dL (74-106); Potassium 3.9 mmol/L (3.5-5.1); Sodium Level 137 mmol/L (136-145)
[2023-12-15 07:04] LABS: Red Blood Cells-Urine > 100 SEEN /hpf (0-5); Squamous Epithelial Cells - UA 0-5 SEEN /hpf (5-10); White Blood Cells 0-5 SEEN /hpf (0-5)
[2023-12-15 07:15] LABS: hCG Titer Quant., Serum 12 mIU/mL (1-3)
--- NOTE | 2023-12-15 07:47 | EDS_ITS ---
HPI HPI - Female History of Present Illness Chief Complaint: Vag Bld, Preg Informant: patient Narrative Narrative: Patient is a 33-year-old female with past medical history of morbid obesity hypertension asthma and diabetes. She reports she is 5 weeks . She states that she is a G1, P0. She reports she woke up this morning to do her normal routine and then noted cramping in her lower abdomen and back and then passage of dark red blood. She denies any history of bleeding disorder or blood thinner use. She states has been persistent ooze of blood since its onset and secondary to this comes in for evaluation. [facility] Medical History Diabetes Asthma Hypertension Home Medications ?Medication ?Instructions ?Recorded ?Last Taken ?Type NK 12/15/23 Unknown History Allergy/AdvReac Type Severity Reaction Status Date / Time No Known Allergies Allergy Verified 12/15/23 05:56 Surgical History Hx of adenoidectomy Hx of cholecystectomy Social History (Updated 10/03/22 @ 11:[address] Prem Kimbrough MD) household members: significant other Smoking Status: Current some day smoker tobacco type: cigarettes ROS ROS ED Constitutional Constitutional ED: Denies chills or fever(s) Eyes Eyes: Denies blurry vision or change in vision ENT ENT ED: Denies sore throat Cardiovascular Cardiovascular: Denies chest pain Respiratory/Chest Respiratory/Chest: Denies cough or dyspnea Gastrointestinal Gastrointestinal: Reports abdominal pain; Denies diarrhea, nausea or vomiting Genitourinary Genitourinary ED: Reports other Details: Positive vaginal bleeding ; Denies dysuria Musculoskeletal Musculoskeletal: Denies myalgias Integumentary Denies rash Neurologic Neurologic: Denies headache(s) Hematologic/Lymphatic Hematologic/Lymphatic: Denies easy bleeding or easy bruising EXAM Physical Exam Const Vital Signs: 12/15/23 05:56 Temperature 96.5 F L Temperature Source Oral Pulse Rate 126 H Respiratory Rate 16 Blood Pressure 156/94 H Blood Pressure Mean 114 Pulse Ox 99 Positive well nourished, well developed and obese General Appearance ED: well developed; Negative for pallor Nutritional Appearance: obese HEENT HEENT Narrative: Normocephalic atraumatic Eyes PERRL and EOMs intact bilaterally General Eye ED: Negative for pale conjunctiva or scleral icterus Neck supple Resp normal respiratory effort and clear to auscultation bilaterally Cardio regular rhythm Rate: tachycardic and other Other Details: Tachycardic rate with regular rhythm. No murmurs rubs or gallops noted Radial and carotid pulses are equal and symmetric GI soft to palpation, non-distended and no masses GI Narrative: Abdomen is obese soft and nondistended with normal active bowel sounds. There is mild pain with palpation in the lower midline/suprapubic abdomen without voluntary guarding or rigidity or pulsatile mass Auscultation: normoactive bowel sounds Palpation: soft Narrative: External genitalia is normal. Internal speculum exam reveals a small amount approximately half a shot glass of dark red blood. The cervical os is closed b ut there is faint ooze of blood from it consistent with her history of bleeding. No cervical motion tenderness or adnexal masses noted Extremity normal to inspection and full ROM Neuro oriented x3, CN's II-XII intact bilaterally and no sensory deficits noted Sensorium / Orientation: alert Motor Exam: strength 5/5 throughout Psych mental status grossly normal Skin no rashes or lesions noted General Skin Exam: Negative for jaundice or pallor MDM MDM MDM Narrative Medical decision making narrative: Patient arrived the ER hypertensive but does have a past medical history of this and she was also mildly tachycardic but I feel this is related to stress and anxiety as her exam does not suggest acute blood loss anemia. With patient reporting she is 5 weeks differential diagnosis is for ectopic versus spontaneous miscarriage versus acute blood loss anemia. Secondary to his basic blood work was obtained. H&H is stable at 14.5 and 44 going against acute blood loss anemia. Patient is afebrile with normal white count and no left shift going against infectious process. Urine shows no sign of infection going against UTI or pyelonephritis as the cause of her symptoms. The patient's quantitative hCG value is only 12 which would indicate that she is potentially off on her dates of or could be related to a spontaneous miscarriage. She is Rh- and therefore based on history and exam indicating this is most likely spontaneous miscarriage should be given RhoGAM prevent serum conversion. A transvaginal ultrasound was ordered to check for signs of IUP versus ectopic . The ultrasound is still pending therefore patient will be signed out to the day physician Dr. Levy pending its result. I do feel that if it shows no signs of IUP or ectopic that the case can be discussed with [facility] and that based on the low hCG value she is safe for follow-up on an outpatient basis History & Record Review Discussion w/independent historian: Patient Lab Data Attestation: I reviewed the patient's lab results. Labs: Laboratory Results - last 24 hr 12/15/23 12/15/23 06:20 06:43 WBC 9.6 RBC 5.04 Hgb 14.5 Hct 44.0 MCV 87.3 MCH 28.8 MCHC 33.0 RDW Std Deviation 45.0 H RDW Coeff of Jelena 14.1 Plt Count 333 MPV 10.6 Immature Gran % (Auto) 0.300 Neut % (Auto) 64.7 Lymph % (Auto) 24.1 Tom[place]kins % (Auto) 5.9 Eos % (Auto) 4.4 Baso % (Auto) 0.6 Absolute Neuts (auto) 6.2 Absolute Lymphs (auto) 2.32 Nucleated RBC % 0 Sodium 137 Potassium 3.9 Chloride 108 H Carbon Dioxide 23.0 Anion Gap 6 BUN 8 Creatinine 0.77 Estim Creat Clear Calc 164.28 Est GFR (MDRD) Af Amer 111 Est GFR (MDRD) Non-Af 92 BUN/Creatinine Ratio 10.4 Glucose 102 Calcium 8.9 HCG, Quant 12 H Urine Color Red Urine Clarity Cloudy Urine pH 6.0 Ur Specific [place] 1.025 Urine Protein 100 H Urine Glucose (UA) Normal Urine Ketones 5 H Urine Occult Blood 250 H Urine Nitrite Negative Urine Bilirubin 1 H Urine Urobilinogen 1 H Ur Leukocyte Esterase 100 H Urine RBC > 100 SEEN Urine WBC 0-5 SEEN Ur Squamous Epith Cells 0-5 SEEN Urine Bacteria 0 SEEN Urine Mucus 0 SEEN Blood Type O NEGATIVE Discharge Plan Triage Chief Complaint: Vag Bld, Preg ED Provider: Graham Lockett Dx/Rx/DC Orders Clinical Impression: Spontaneous miscarriage, Hypertension, Asthma Instructions: ED Miscarriage Spontaneous Prescriptions: No Action NK Primary Care Provider: Jatin Trotter Referrals: Rachel Cross MD [Med Staff - Active Staff] - Jatin Trotter, BRADDER-C [Primary Care Provider] - Activity Restrictions/Additional Instructions: Please follow-up with [facility] for repeat evaluation and return to the ER if you get worsening abdominal pain or bleeding Print Language: Macedonian Disposition Disposition: Home, Self Care
[2023-12-15 07:56] VITALS: BP 142/84; PULSE 86; RESP 16; O2SAT 98
[2023-12-15] MEDS: Rho(D) Immune Globulin 300 MCG (1500 Unit) Syringe IM (08:58)
[2023-12-15 09:00] VITALS: BP 141/79; PULSE 78; RESP 18; O2SAT 97
[2023-12-15 09:22] VITALS: BP 136/91; PULSE 83; RESP 16; TEMP 36.9; O2SAT 98
== END 2023-12-15 09:27 | disposition home or self-care (01) ==
PROVIDERS: Emergency Medicine; Emergency Provider Emergency Medicine; PCP Nurse Practitioner Family; Visit Provider Emergency Medicine
DX: O03.9 Complete or unspecified spontaneous abortion without complication (principal); E66.01 Morbid (severe) obesity due to excess calories; E11.9 Type 2 diabetes mellitus without complications; O99.211 Obesity complicating pregnancy, first trimester; O24.111 Pre-existing type 2 diabetes mellitus, in pregnancy, first trimester; O99.331 Smoking (tobacco) complicating pregnancy, first trimester; O10.011 Pre-existing essential hypertension complicating pregnancy, first trimester; O99.511 Diseases of the respiratory system complicating pregnancy, first trimester; F17.210 Nicotine dependence, cigarettes, uncomplicated; J45.909 Unspecified asthma, uncomplicated; Z3A.01 Less than 8 weeks gestation of pregnancy
CPT/HCPCS: 76817; 80048; 81001; 84702; 85025; 86900; 86901; 90384; 99282; A4216; J2790; J2791

== ENCOUNTER → 2024-11-01 | Outpatient (CLI) | payer OTHER, SELFPAY ==
[2024-11-01 11:28] LABS: Hematocrit 44.1 % (37-47); Hemoglobin 14.8 g/dL (12.0-15.0); Immature Granulocytes Count 0.010 X10^3/uL (0.0-0.0); Mean Corp Hgb Conc 33.6 g/dL (32-36); Mean Corpuscular Volume 89.1 fL (81-99); Mean Platelet Vol. 10.5 fl (6.2-12.0); NRBC Flagged by Analyzer 0 % (0-5); Platelet Count 368 K/mm3 (150-450); RBC Distribution Width CV 13.7 % (11.6-14.6); RBC Distribution Width SD 44.3 fl (35.1-43.9); Red Blood Count 4.95 M/mm3 (4.2-5.4); White Blood Count 7.8 K/mm3 (4.4-11.0)
[2024-11-01 12:34] LABS: Microalbumin,Random Urine < 12.0 mg/L (NO RANGE EST.)
[2024-11-01 13:33] LABS: Cholesterol 178 mg/dL (<=200); Low Density Lipoprotein Calc. 119 mg/dL; Triglycerides 69 mg/dL; Very Low Density Lipoprotein 14 mg/dL (5-40); cholesterol:hdl ratio screen 3.91
[2024-11-01 13:51] LABS: AST(SGOT) 17 U/L (<=31); Alanine Aminotransfer ALT/SGPT 19 U/L (<=34); Albumin, Serum 4.3 g/dL (3.5-5.0); Alkaline Phosphatase 92 U/L (35-104); Anion Gap 12 (5-15); BUN 8 mg/dL (4-19); BUN/Creat Ratio 10.2 RATIO (10-20); Calcium,Total 9.7 mg/dL (7.6-11.0); Carbon Dioxide 21.4 mmol/L (21.0-32.0); Chloride 104 mmol/L (98-108); Follicle Stimulating Hormone 9.7 mIU/mL; Globulin 3.3 g/dL (2.2-4.2); Glucose 83 mg/dL (70-99); Potassium 4.3 mmol/L (3.3-5.1); Vitamin B12 371 pg/mL (180-914); Vitamin D,25 Hydroxy 16.7 ng/mL (30-100)
[2024-11-08 09:08] LABS: Testosterone, % Free 2.22 % (0.50-2.80); Testosterone, Free 1.64 ng/dL (0.10-0.85)
== END | disposition home or self-care (01) ==
LOC: VSLAB 08:28
PROVIDERS: PCP Nurse Practitioner Family; Visit Provider Nurse Practitioner Family
DX: E11.9 Type 2 diabetes mellitus without complications (principal); E56.9 Vitamin deficiency, unspecified; F41.1 Generalized anxiety disorder
CPT/HCPCS: 36415; 80053; 80061; 82043; 82306; 82607; 82670; 83001; 83002; 84402; 84403; 84443; 85025; 86376

== ENCOUNTER → 2025-01-02 | Outpatient (CLI) | payer OTHER, SELFPAY ==
[2025-01-04 04:07] LABS: Chlamydia By Nucleic Acid AMP Negative (Negative); Gonococcus By Nucleic Acid AMP Negative (Negative)
[2025-01-04 09:08] LABS: HPV APTIMA, High Risk Negative (Negative)
== END | disposition home or self-care (01) ==
LOC: LABSPEC 11:50
PROVIDERS: PCP Nurse Practitioner Family; Visit Provider Nurse Practitioner Women's Health
DX: Z12.4 Encounter for screening for malignant neoplasm of cervix (principal); Z11.3 Encounter for screening for infections with a predominantly sexual mode of transmission
CPT/HCPCS: 87491; 87591; 87624; 88175; G0145

== ENCOUNTER → 2025-01-12 | Outpatient (CLI) | payer OTHER, SELFPAY | END | disposition home or self-care (01) | LOC: BWCLAB 08:34 | PROVIDERS: PCP Nurse Practitioner Family; Referring Provider Nurse Practitioner Women's Health; Visit Provider Nurse Practitioner Women's Health | DX: N97.9 Female infertility, unspecified (principal) | CPT/HCPCS: 36415 ==

== ENCOUNTER → 2025-02-12 | Outpatient (CLI) | payer OTHER, SELFPAY ==
[2025-02-12 13:12] LABS: hCG Titer Quant., Serum 43 mIU/mL (<9 non-preg)
== END | disposition home or self-care (01) ==
PROVIDERS: PCP Nurse Practitioner Family; Visit Provider Advanced Practice Midwife
DX: Z87.59 Personal history of other complications of pregnancy, childbirth and the puerperium (principal)
CPT/HCPCS: 36415; 84702

== ENCOUNTER → 2025-02-14 | Outpatient (CLI) | payer OTHER, SELFPAY ==
[2025-02-14 13:19] LABS: hCG Titer Quant., Serum 112 mIU/mL (<9 non-preg)
== END | disposition home or self-care (01) ==
LOC: BWCLAB 09:04
PROVIDERS: PCP Nurse Practitioner Family; Visit Provider Advanced Practice Midwife
DX: Z87.59 Personal history of other complications of pregnancy, childbirth and the puerperium (principal)
CPT/HCPCS: 36415; 84702

== ENCOUNTER → 2025-03-19 | Outpatient (CLI) | payer OTHER, SELFPAY ==
[2025-03-19 12:23] LABS: Hematocrit 41.7 % (37-47); Hemoglobin 13.9 g/dL (12.0-15.0); Immature Granulocytes Count 0.090 X10^3/uL (0.0-0.0); Mean Corp Hgb Conc 33.3 g/dL (32-36); Mean Corpuscular Volume 91.2 fL (81-99); Mean Platelet Vol. 9.9 fl (6.2-12.0); NRBC Flagged by Analyzer 0 % (0-5); Platelet Count 380 K/mm3 (150-450); RBC Distribution Width CV 14.1 % (11.6-14.6); RBC Distribution Width SD 46.7 fl (35.1-43.9); Red Blood Count 4.57 M/mm3 (4.2-5.4); White Blood Count 14.4 K/mm3 (4.4-11.0)
[2025-03-19 13:07] LABS: Creatinine, Urine (random) 78.20 mg/dL (28.00-217.00); Protein, Urine (Random) < 6.0 mg/dL (0.0-12.0); Protein:Creat Ratio UNABLE TO CALCULATE mg/g CRE (0-200)
[2025-03-19 13:25] LABS: AST(SGOT) 17 U/L (<=31); Alanine Aminotransfer ALT/SGPT 24 U/L (<=34); Albumin, Serum 4.2 g/dL (3.5-5.0); Alkaline Phosphatase 75 U/L (35-104); Anion Gap 13 (5-15); BUN 10 mg/dL (4-19); BUN/Creat Ratio 15.9 RATIO (10-20); Calcium,Total 10.1 mg/dL (7.6-11.0); Carbon Dioxide 22.8 mmol/L (21.0-32.0); Chloride 104 mmol/L (98-108); Globulin 2.6 g/dL (2.2-4.2); Glucose 86 mg/dL (70-99); HIV Nonreactive (Nonreactive); Hepatitis B Surface Antigen Nonreactive (Nonreactive); Hepatitis C Antibody Nonreactive (Nonreactive); Potassium 4.4 mmol/L (3.3-5.1); Syphilis Antibodies Nonreactive (Nonreactive)
[2025-03-20 20:08] LABS: Chlamydia By Nucleic Acid AMP Negative (Negative); Gonococcus By Nucleic Acid AMP Negative (Negative)
[2025-03-20 22:07] LABS: HPV APTIMA, High Risk Negative (Negative)
== END | disposition home or self-care (01) ==
PROVIDERS: PCP Nurse Practitioner Family; Visit Provider Obstetrics & Gynecology
DX: O09.90 Supervision of high risk pregnancy, unspecified, unspecified trimester (principal); Z3A.00 Weeks of gestation of pregnancy not specified; Z12.4 Encounter for screening for malignant neoplasm of cervix
CPT/HCPCS: 36415; 80053; 82570; 83036; 84156; 84443; 85025; 86703; 86762; 86780; 86803; 86850; 86900; 86901; 87086; 87340; 87491; 87591; 87624; 88175; G0145

== ENCOUNTER → 2025-04-02 | Outpatient (CLI) | payer OTHER, SELFPAY ==
--- NOTE | 2025-04-02 08:41 | EKG12_ITS ---
Test Reason : HTN- Blood Pressure : */* mmHG Vent. Rate : 93 BPM Atrial Rate : 93 BPM P-R Int : 154 ms QRS Dur : 92 ms QT Int : 344 ms P-R-T Axes : 61 -4 18 degrees QTcB Int : 427 ms Normal sinus rhythm Normal ECG Confirmed by Gume Huynh ([id number]), order editor ALEXANDER RUIZ ([id number]) on 04/02/2025 9:59:48 AM Referred By: Akanksha Benoit Confirmed By: Gume Huynh
== END | disposition home or self-care (01) ==
LOC: PSN 08:35
PROVIDERS: PCP Nurse Practitioner Family; Referring Provider Obstetrics & Gynecology; Visit Provider Obstetrics & Gynecology
DX: O10.919 Unspecified pre-existing hypertension complicating pregnancy, unspecified trimester (principal); Z3A.00 Weeks of gestation of pregnancy not specified
CPT/HCPCS: 93005

== ENCOUNTER → 2025-04-16 | Outpatient (CLI) | payer OTHER, SELFPAY | END | disposition home or self-care (01) | PROVIDERS: PCP Nurse Practitioner Family; Visit Provider Obstetrics & Gynecology | DX: O09.90 Supervision of high risk pregnancy, unspecified, unspecified trimester (principal) | CPT/HCPCS: 36415 ==